=== PATIENT | female | born 1970 | race Caucasian/White ===

== ENCOUNTER 2017-01-26 13:08 | Emergency (ER) | payer OTHER ==
[~2017-01-26] VITALS: Ht 147.3 cm; Wt 50.0 kg
[2017-01-26 13:14] VITALS: Ht 147.3 cm; Wt 50.0 kg
[2017-01-26] MEDS ORDERED: KETOROLAC 30 MG INJ IV STA (14:21)
[2017-01-26] MEDS ORDERED: ONDANSETRON 4 MG INJ IV STA (14:21)
[2017-01-26] MEDS ORDERED: SOD CHLORIDE 0.9% 1,000 ML IV STA (14:21)
[2017-01-26 14:47] LABS: BASOPHILS % 0.2 % (0.0-2.0); HEMATOCRIT 38.8 % (37.0-47.0); HEMOGLOBIN 13.1 g/dl (12.0-16.0); LYMPHOCYTES # 0.9 10^3/ul (0.8-2.9); MEAN CORPUSCULAR HEMOGLOBIN 29.1 pg (29.0-33.0); MEAN CORPUSCULAR HGB CONC 33.8 g/dl (32.0-37.0); MEAN CORPUSCULAR VOLUME 86.2 fl (82.0-101.0); MONOCYTE # 0.5 10^3/ul (0.3-0.9); MONOCYTES % 3.9 % (0.0-11.0); NEUTROPHIL # 11.3 10^3/ul (1.6-7.5); NEUTROPHILS % 88.4 % (39.0-77.0); PLATELET COUNT 287 10^3/UL (140-415); RED CELL DISTRIBUTION WIDTH 12.4 % (11.5-14.5); WHITE BLOOD COUNT 12.8 10^3/ul (4.8-10.8)
[2017-01-26 15:10] LABS: ALBUMIN 4.6 g/dl (3.3-4.9); ALBUMIN/GLOBULIN RATIO 1.12; BILIRUBIN,INDIRECT 1.1 mg/dl (0-1.1); BILIRUBIN,TOTAL 1.1 mg/dl (0.2-1.3); CALCIUM 11.6 mg/dl (8.4-10.2); CREATININE 0.62 mg/dl (0.44-1.00); POTASSIUM 4.1 mmol/L (3.5-5.1); TOTAL PROTEIN 8.7 g/dl (6.1-8.1)
--- NOTE | 2017-01-26 15:19 | ERD ---
ER Documentation Chief Complaint Date/Time DATE: 01/26/17 TIME: 15:17 Chief Complaint C/O ABD PAIN. HPI This is a 46-year-old female presents to the ER with left-sided lower abdominal pain that radiates into her groin and her back. Patient states that this pain started last night and has gotten significantly worse. Pain is intermittent and sharp in quality. Patient admits to urinary frequency, dysuria and about an hour ago had an episode of hematuria. Patient admits to fever last night and chills throughout the day today. Patient denies any vaginal discharge. Patient admits to nausea and nonbilious nonbloody vomiting however she denies diarrhea. Patient has not traveled anywhere recently and there are no sick contacts at home. ROS 12 point review of systems was done, all negative except per HPI. Medications Home Meds Active Scripts Ondansetron Hcl* (Zofran*) 4 Mg Tab, 4 MG PO Q4H Y for NAUSEA AND OR VOMITING for 3 Days, TAB Prov:THAIS NEWBY 01/26/17 Ciprofloxacin Hcl* (Ciprofloxacin Hcl*) 500 Mg Tablet, 500 MG PO BID for 7 Days , TAB Prov:THAIS NEWBY 01/26/17 Tamsulosin Hcl* (Flomax*) 0.4 Mg Cap.er.24h, 0.4 MG PO QHS, #15 CAP Prov:THAIS NEWBY 01/26/17 Hydrocodone/Acetaminophen (Avalon 5-325 Tablet) 1 Each Tablet, 1 TAB PO Q6H Y for PAIN, #20 TAB Prov:THAIS NEWBY 01/26/17 Ibuprofen* (Motrin*) 600 Mg Tab, 600 MG PO Q6, #30 TAB Prov:THAIS NEWBY 01/26/17 Allergies Allergies: Coded Allergies: No Known Allergy (Unverified , 01/26/17) PMhx/Soc Medical and Surgical Hx: pt denies Medical Hx, pt denies Surgical Hx Hx Alcohol Use: No Hx Substance Use: No Hx Tobacco Use: No Physical Exam Vitals Vital Signs Date Time Temp Pulse Resp B/P Pulse Ox O2 Delivery O2 Flow Rate FiO2 01/26/17 13:14 97.9 74 18 143/65 100 Physical Exam GENERAL: The patient is well developed and appropriate for usual state of health , in no apparent distress. HEENT: Atraumatic. CHEST: Clear to auscultation bilaterally. There are no rales, wheezes or rhonchi. HEART: Regular rate and rhythm. No murmurs, clicks, rubs or gallops. ABDOMEN: Soft and nondistended, tender to palpation to the left lower quadrant. Good bowel sounds. No rebound or guarding. No gross peritonitis. No gross organomegaly or masses. No Gonzales sign or McBurney point tenderness. BACK: No midline or flank tenderness. NEURO: Alert and oriented. Result Diagram: 01/26/17 1435 01/26/17 1435 Results 24 hrs Laboratory Tests Test 01/26/17 14:20 01/26/17 14:35 Urine Color YELLOW Urine Clarity CLOUDY Urine pH 7.0 Urine Specific [place] 1.014 Urine Ketones NEGATIVEmg/dL Urine Nitrite NEGATIVEmg/dL Urine Bilirubin NEGATIVEmg/dL Urine Urobilinogen NEGATIVEmg/dL Urine Leukocyte Esterase NEGATIVELeu/ul Urine Microscopic RBC > 182/HPF Urine Microscopic WBC 23/HPF Urine Bacteria FEW/HPF Urine Mucus FEW/HPF Urine Hemoglobin 3+mg/dL Urine Glucose NEGATIVEmg/dL Urine Total Protein 1+mg/dl White Blood Count 12.810^3/ul Red Blood Count 4.5010^6/ul Hemoglobin 13.1g/dl Hematocrit 38.8% Mean Corpuscular Volume 86.2fl Mean Corpuscular Hemoglobin 29.1pg Mean Corpuscular Hemoglobin Concent 33.8g/dl Red Cell Distribution Width 12.4% Platelet Count 42886^3/UL Mean Platelet Volume 10.0fl Neutrophils % 88.4% Lymphocytes % 7.0% Monocytes % 3.9% Eosinophils % 0.0% Basophils % 0.2% Nucleated Red Blood Cells % 0.0/100WBC Neutrophils # 11.310^3/ul Lymphocytes # 0.910^3/ul Monocytes # 0.510^3/ul Eosinophils # 0.010^3/ul Basophils # 0.010^3/ul Nucleated Red Blood Cells # 0.010^3/ul Sodium Level 144mmol/L Potassium Level 4.1mmol/L Chloride Level 105mmol/L Carbon Dioxide Level 25mmol/L Anion Gap 18 Blood Urea Nitrogen 16mg/dl Creatinine 0.62mg/dl Glucose Level 122mg/dl Calcium Level 11.6mg/dl Total Bilirubin 1.1mg/dl Direct Bilirubin 0.00mg/dl Indirect Bilirubin 1.1mg/dl Aspartate Amino Transf (AST/SGOT) 46IU/L Alanine Aminotransferase (ALT/SGPT) 67IU/L Alkaline Phosphatase 153IU/L Total Protein 8.7g/dl Albumin 4.6g/dl Globulin 4.10g/dl Albumin/Globulin Ratio 1.12 Lipase 93U/L Current Medications Medications (Trade) Dose Ordered Sig/Sean Route PRN Reason Start Time Stop Time Status Last Admin Dose Admin Sodium Chloride (NS) 1,000 ml @ 1,000 mls/hr Q1H STAT IV 01/26/17 14:21 01/26/17 15:20 DC 01/26/17 14:40 Ondansetron HCl (Zofran Inj) 4 mg ONCE STAT IV 01/26/17 14:21 01/26/17 14:22 DC 01/26/17 15:10 Ketorolac Tromethamine (Toradol) 30 mg ONCE STAT IV 01/26/17 14:21 01/26/17 14:22 DC 01/26/17 14:40 [place] [id number] Radiology Main Line: [phone] DIAGNOSTIC IMAGING REPORT Patient: LOUIE SHAIKH : 1970 Age: 46 Sex: F MR #: [id number] DOS: 01/26/17 1421 Ordering MD: THAIS NEWBY PA-C Location: [facility] Room/Bed: PROCEDURE: CT abdomen and pelvis without contrast. CLINICAL INDICATION: Abdominal pain. TECHNIQUE: CT of the abdomen and pelvis without contrast was performed on a multidetector high-resolution CT scanner. Coronal and sagittal reformatted images were obtained from the axial source images. Images were reviewed on a high-resolution PACS workstation. The total exam CTDI equals 4.29 mGy and the total exam DLP equals 204.41 mGy-cm. One or more of the following dose reduction techniques were used: - Automated exposure control. - Adjustment of the mA and/or kV according to patient size. - Use of iterative reconstruction technique. COMPARISON: None available. FINDINGS: Visualized lower thorax: The visualized lung bases are clear. The visualized heart is unremarkable. Hepatobiliary system and spleen: The liver is grossly unremarkable. There is no intra or extrahepatic biliary ductal dilatation. There is a stone in the gallbladder. The spleen is grossly unremarkable. The pancreas is grossly unremarkable. Adrenal glands and genitourinary system: The adrenal glands are grossly unremarkable. There is an obstructing 4 mm stone at the left ureterovesicle junction with associated mild to moderate left hydroureteronephrosis, left renal edema, and mild left perinephric and periureteral inflammatory change. There are additional punctate nonobstructing stones throughout the left kidney. There is no right-sided nephrolithiasis or hydronephrosis. The uterus and adnexa are grossly unremarkable. Gastrointestinal system: The stomach and small bowel are unremarkable. There is no bowel wall thickening or evidence of obstruction. The appendix is in the right lower quadrant and is unremarkable. Peritoneum, vascular, and lymphatics: There is no free intraperitoneal air or free fluid. There is no mesenteric or retroperitoneal adenopathy. The aorta is nonaneurysmal. Musculoskeletal system and soft tissues: There are no concerning osseous lesions. IMPRESSION: 1. Obstructing 4 ml stone at the left UVJ with associated mild to moderate left hydroureteronephrosis and left perinephric and periureteral inflammatory change. 2. Additional punctate nonobstructing left nephrolithiasis. 3. Cholelithiasis. These findings discussed with Thais Newby in the ED at 1526 hours on 2016. RPTAT: HLBP .Malik Dorado MD, MD Date Time Electronically viewed and signed by .Malik Dorado MD, MD on 01/26/2017 15:27 .P/ CC: THAIS NEWBY/[facility] This is a 46 y/o female that presents to the ER with left sided abdominal pain that radiates into the groin and back. Her symptoms are consistent with kidney stone. Patient does have an obstructive kidney stone of 4mm, which is borderline. Patient's pain was controlled in the ER and she has been afebrile throughout the ER course. She is non toxic appearing, I doubt septic stone. Patient's laboratory studies and CT imaging was negative for other acute abdominal emergencies. She is able to tolerate fluids by mouth, and stable for outpatient follow up. Patient will be sent home with Cipro, Ibuprofen, Avalon, Zofran, Flomax. She was given the information for the Timo who is a urologist. Patient needs to follow up with him directly or go to her PCP within 1-2 days for referral. She should return to ER sooner if symptoms worsen. My medical decision making was discussed with the patient and her , they understand and agree with plan. Departure Diagnosis: Primary Impression: Kidney stone Condition: Stable THAIS NEWBY Jan 26, 2017 15:19
--- NOTE | 2017-01-26 15:28 | RADRPT ---
PROCEDURE: CT abdomen and pelvis without contrast. CLINICAL INDICATION: Abdominal pain. TECHNIQUE: CT of the abdomen and pelvis without contrast was performed on a multidetector high-reso lution CT scanner. Coronal and sagittal reformatted images were obtained from the axial source image s. Images were reviewed on a high-resolution PACS workstation. The total exam CTDI equals 4.29 mGy a nd the total exam DLP equals 204.41 mGy-cm. One or more of the following dose reduction techniques were used: - Automated exposure control. - Adjustment of the mA and/or kV according to patient size. - Use of iterative reconstruction technique. COMPARISON: None available. FINDINGS: Visualized lower thorax: The visualized lung bases are clear. The visualized heart is unremarkable. Hepatobiliary system and spleen: The liver is grossly unremarkable. There is no intra or extrahepat ic biliary ductal dilatation. There is a stone in the gallbladder. The spleen is grossly unremarkabl e. The pancreas is grossly unremarkable. Adrenal glands and genitourinary system: The adrenal glands are grossly unremarkable. There is an o bstructing 4 mm stone at the left ureterovesicle junction with associated mild to moderate left hydr oureteronephrosis, left renal edema, and mild left perinephric and periureteral inflammatory change. There are additional punctate nonobstructing stones throughout the left kidney. There is no right -sided nephrolithiasis or hydronephrosis. The uterus and adnexa are grossly unremarkable. Gastrointestinal system: The stomach and small bowel are unremarkable. There is no bowel wall thick ening or evidence of obstruction. The appendix is in the right lower quadrant and is unremarkable. Peritoneum, vascular, and lymphatics: There is no free intraperitoneal air or free fluid. There is no mesenteric or retroperitoneal adenopathy. The aorta is nonaneurysmal. Musculoskeletal system and soft tissues: There are no concerning osseous lesions. IMPRESSION: 1. Obstructing 4 ml stone at the left UVJ with associated mild to moderate left hydroureteronephros is and left perinephric and periureteral inflammatory change. 2. Additional punctate nonobstructing left nephrolithiasis. 3. Cholelithiasis. These findings discussed with Thais Jenkins in the ED at 1526 hours on 01/26/2017. RPTAT: HLBP .Malik Dorado MD, MD Date Time Electronically viewed and signed by .Malik Dorado MD, MD on 01/26/2017 15:27 .P/
[2017-01-26 15:36] LABS: ADD UMIC YES; UR ASCORBIC ACID NEGATIVE (NEGATIVE); UR BACTERIA FEW /HPF (NONE SEEN); UR BILIRUBIN (Dip) NEGATIVE (NEGATIVE); UR BLOOD (Dip) 3+ mg/dL (NEGATIVE); UR CLARITY CLOUDY (CLEAR); UR COLOR YELLOW (YELLOW); UR GLUCOSE (Dip) NEGATIVE (NEGATIVE); UR KETONES (Dip) NEGATIVE (NEGATIVE); UR LEUKOCYTE ESTERASE (Dip) NEGATIVE Leu/ul (NEGATIVE); UR MUCUS FEW /HPF (NONE SEEN); UR NITRITE (Dip) NEGATIVE (NEGATIVE); UR RBC > 182 /HPF (0-5); UR SPECIFIC GRAVITY (Dip) 1.014 (1.003-1.030); UR TOTAL PROTEIN (Dip) 1+ mg/dl (NEGATIVE); UR UROBILINOGEN (Dip) NEGATIVE (NEGATIVE)
[2017-01-26] MEDS ORDERED: HYDR-906 PO (15:41)
[2017-01-26] MEDS ORDERED: IBUP-1542 PO (15:41)
[2017-01-26] MEDS ORDERED: ONDA-43 PO (15:42)
[2017-01-26] MEDS ORDERED: CIPR500T4 PO (15:42)
[2017-01-26] MEDS ORDERED: TAMS-14 PO (15:42)
== END 2017-01-26 16:09 | disposition home or self-care (01) ==
LOC: FTE 13:08
DX: N20.0 Calculus of kidney (principal); R11.2 Nausea with vomiting, unspecified
CPT/HCPCS: 36415; 74176; 80053; 81001; 83690; 85025; 96374; 96375; 99285; J1885; J2405; J7030